=== PATIENT | male | born 1980 | race Caucasian/White ===

== ENCOUNTER 2022-05-25 10:13 | Outpatient (CLI) | payer BC, SELFPAY ==
[2022-05-25 10:45] LABS: Hematocrit 42.2 % (37.0-53.0); Hemoglobin* 14.6 gm/dL (13.5-17.5); Mean Corpuscular HGB Conc 35 gm/dL (32-36); Mean Corpuscular Hemoglobin 31 pg (26-34); Mean Corpuscular Volume 89 fL (80-100); Platelet Count* 220 K/uL (140-440); Red Blood Count 4.75 m/uL (4.30-5.90); White Blood Count* 6.78 K/uL (4.50-11.00)
[2022-05-25 10:51] LABS: Slide Review Reflex No
[2022-05-25 22:02] LABS: Albumin* 4.7 g/dL (3.3-5.0)
[2022-05-25 22:03] LABS: Chloride* 104 mmol/L (96-114); Potassium* 4.3 mmol/L (3.6-5.1); Sodium* 140 mmol/L (135-149)
[2022-05-25 22:05] LABS: Alkaline Phosphatase* 97 U/L (40-150); Aspartate Amino Transferase* 35 U/L (12-35); Bilirubin Total* 0.7 mg/dL (0.1-1.5); Blood Urea Nitrogen* 14 mg/dL (5-24); Carbon Dioxide* 28 mmol/L (20-32); Cholesterol* 205 mg/dL (90-199); Creatinine* 0.8 mg/dL (0.5-1.5); Estimated Glomerular Filt Rate 113 ml/min; Total Protein* 7.7 g/dL (6.0-8.3)
[2022-05-25 22:06] LABS: Alanine Aminotransferase* 70 U/L (4-50); Calcium* 9.5 mg/dL (8.4-10.6); Glucose* 82 mg/dL (60-115); HDL Cholesterol* 50 mg/dL (>=40); LDL Cholesterol Calculated 132 mg/dL (<100); Triglycerides* 113 mg/dL (40-149)
== END 2022-05-25 10:14 | disposition home or self-care (01) ==
PROVIDERS: PCP Physician Assistant Medical; Visit Provider Physician Assistant Medical
DX: Z01.810 Encounter for preprocedural cardiovascular examination (principal); Z13.6 Encounter for screening for cardiovascular disorders
CPT/HCPCS: 80053; 80061; 85027

== ENCOUNTER 2023-05-27 09:00 | Outpatient (CLI) | payer BC, SELFPAY | END 2023-05-27 09:01 | disposition home or self-care (01) | LOC: NFLDREF 06-03 09:39 | PROVIDERS: PCP Physician Assistant Medical; Referring Provider Physician Assistant Medical; Visit Provider Physician Assistant Medical | DX: E78.5 Hyperlipidemia, unspecified (principal); R79.89 Other specified abnormal findings of blood chemistry | CPT/HCPCS: 80053; 80061; 84443 ==

== ENCOUNTER 2024-04-23 06:14 | Day surgery (SDC) | payer BC, SELFPAY ==
[2024-04-23] VITALS (7 sets, daily range): BP systolic 112–156; BP diastolic 62–84; PULSE 50–79; RESP 14–16; TEMP 36.3–36.6; O2SAT 92–99; BMI 29.5
--- OUTSIDE RECORDS SUMMARY | 2024-04-23 06:16 | XMS_ITS | Clinical Summary ---
Author Organization [facility] Address [place], [place] [address] Care Team Providers Care Offset Label Rewinder Name Role Phone Pcp, No Primary Care Provider Unavailabl e Allergies No known active allergies Medications Medication Sig Dispensed Refills Start Date End Date Status HYDROcodone-acetam inophen (NORCO) 5-325 mg per tabletIndications: Sebaceous cyst Take 1 Tablet by mouth every 4 hours if needed for Pain. Max acetaminophen dose: 4000 mg in 24 hrs. 10 Tablet 06/08/2022 Active Active Problems Problem Noted Date Diagnosed Date Sebaceous cyst 06/08/2022 Social History Tobacco Use Types Packs/Day Years Used Date Smoking Tobacco: Never Smokeless Tobacco: Never Alcohol Use Standard Drinks/Week Comments Yes 0 (1 standard drink = 0.6 oz pur e alcohol) 1-2/week Sex and Gender Information Value Date Recorded Sex Assigned at Not on file Gender Identity Not on file Sexual Orientation Not on file Obstetrics History Last Filed Vital Signs Vital Sign Reading Time Taken Comments Blood Pressure 128/73 06/08/2022 9:32 AM STUDIO PRODUCER Pulse 61 06/08/2022 9:32 AM STUDIO [employer]ODUCER Temperature 36.5 ??C (97.7 ??F) 06/08/2022 9:32 AM CS T Respiratory Rate 16 06/08/2022 9:32 AM STUDIO PRODUCER Oxygen Saturation 99% 06/08/2022 9:32 AM STUDIO PRODUCER Inhaled Oxygen Concentration - - Weight 85.3 kg (188 lb) 06/08/2022 7:10 AM STUDIO PRODUCER Height 172.7 cm (5' 8) 06/08/2022 7:10 AM STUDIO PRODUCER Body Mass Index 28.59 06/08/2022 7:10 AM STUDIO PRODUCER Plan of Treatment Health Maintenance Due Date Last Done Comments Tdap 1989 Depression screening for age 12+ 1990 HIV for age 15-65 1993 BMI (ht and wt on same day) for age 18+ 1996 Hepatitis C screening for ag e 18-79 1996 Tetanus booster 1998 COVID-19 vaccine series ( season) 2023 06/14/2021, 11/11/2020 Influenza for age 9-49 03/11/2023 Colonoscopy through age 75 2023 Lipids for age 45-75 2023 Pneumococcal series for age 6-64 Aged Out No longer eligible b ased on patient's age to complete this topic Advance Directives * Full Code (Latest Code Status on File) Date Activated Date Inactivated Comments 06/08/2022 5:59 AM 06/08/2022 3:02 PM Question Answer Comments Code Status Discussion: Other not disc ussed Care Teams Offset Label Rewinder Relationship Specialty Start Date End Date Pcp, No . PCP - General 05/19/22
[2024-04-23] MEDS: SODIUM CHLORIDE 0.9 % (FLUSH) 10 ML SYRINGE IVF (06:30)
[2024-04-23] MEDS: LACTATED RINGERS 1000 ML 1,000 ML 100 ML IV (07:23)
--- NOTE | 2024-04-23 07:25 | W.PM.H&PU ---
History & Physical Update History & Physical Update H&P Reviewed and patient assessed: No changes noted
--- NOTE | 2024-04-23 07:31 | P.GSOP_ITS ---
Operative Note Date of procedure: 04/23/24 Pre-op diagnosis: 1. Symptomatic right scalp mass, right upper quadrant abdominal wall mass, right lower back mass, and left upper arm mass. Post-op diagnosis: Same Type of Procedure: 1. Excision of right back cyst 6 x 4.5 cm. 2. Excision of left upper arm cyst 3.3 x 2.1 cm. 3. Excision of right upper quadrant abdominal wall mass 6.6 x 4.1 cm. 4. Excision of right scalp mass 5 x 2.1 cm. Indications: 43-year-old male was seen in clinic for evaluation of multiple enlarging masses. Patient complained about left mid upper arm cyst that he noticed several weeks ago. The cyst became hard and painful. He was seen in Urgent Care and was placed on antibiotics. He completed the course of antibiotics. And was seen again in primary care clinic. He was placed on a second course of antibiotics due to concern for continued infection. During his surgery clinic visit his cyst was getting significantly smaller and was not red. Patient also complained of right frontal scalp, right upper quadrant abdominal wall cyst, and right lower back cyst. These were present for a long time. The right lower back cyst was the most bothersome when patient was driving in the car and leaning on his seat. On clinical exam in the right frontal scalp there was a subdermal mass that was measuring approximately dime-sized and protruding from the level of the skin for at least 1 cm. The skin overlying the cyst was thinned out with no ulceration. In the right upper quadrant abdominal wall just inferior to the lower rib there was a slightly larger than golf ball-sized subcutaneous mass that was mobile. The skin overlying the mass was slightly raised suggestive of a cyst. This was not tender to palpation. In the left upper mid arm there was a larger than quarter in size cyst that was soft to palpation. There was no drainage noted and there was a small skin opening in the center of the cyst. The cyst seemed to be attached to the dermis of the overlying skin. In the right lower back there was a horizontally oriented 5 x 6 cm subdermal mass with a central protruding skin over the mass. This was somewhat mobile but deep to palpation. Given patient's clinical history and his enlarging cysts, excision of of all 4 cysts in the operating room was recommended. The procedure was discussed in detail. The risks associated procedure including infection, bleeding, and cyst recurrence were all discussed with the patient, and he agreed to proceed. Procedure Description: After discussing the risks and benefits of the procedure, the patient signed informed consent.? The operative site was marked and the patient was brought to the operating room and placed on the operating table in the lateral decubitus position.? Care was taken to pad the patient's pressure points.?? The patient was then sedated by anesthesia.?? The operative site was then prepped and draped in the usual sterile fashion.? A time-out was then performed. I first started with excision of right lower back mass. Local anesthetic was injected over the palpable right lower back soft tissue mass. An elliptical skin incision was made with a scalpel excising the jones in appearance skin overlying the mass. This is most likely where the cyst was adherent to the dermis. Soft tissue and dermis were divided with cautery. The cyst and surrounding fat were then excised. During this dissection cyst wall was entered and straw-colored thin fluid with minimal debris spilled out into the incision. The cyst was then excised with cautery and sent to pathology. The cyst was measuring 6 x 4.5 cm. Hemostasis achieved with cautery. The incision was irrigated with normal saline. Additional local anesthetic was injected at the surgical site. The incision was then closed in layers with interrupted 2-0 and 3-0 Vicryl sutures. The skin was closed with a running 4-0 Monocryl stitch. The length of the incision was 6.5 cm. Sterile pressure dressing was placed over the incision. We then repositioned the patient into the supine position with all pressure points padded. We then prepped right upper quadrant abdominal wall and left upper lateral arm skin with sterile prep. Those 2 surgical sites were draped in the usual sterile fashion. Local anesthetic was injected at both surgical sites. I then proceeded with excision of left upper arm cyst. Slight thickening in the skin was palpable but the cyst itself decrease in size. An elliptical vertical skin incision was made with a scalpel excising the cyst opening. The dermis was divided with a scalpel. Subcutaneous fat was then dissected with cautery until the lips of skin and underlying cyst with inflammatory tissue were excised. This was sent to pathology. This excise cyst measured 3.3 x 2.1 cm. Additional local anesthetic was injected at the surgical site. The dermis was then reapproximated with interrupted 3-0 Vicryl sutures. The skin was closed with of running 4-0 Monocryl stitch. The length of the incision was 3.5 cm. Steri- Strips and sterile pressure dressings were placed over this incision. I then proceeded with excision of right upper quadrant abdominal wall mass. The mass was protuberant above the level of the skin with a central skin thinning out that was jones in appearance. A horizontal elliptical skin incision was made over the mass excising the discolored thinned out skin. The incision was made with a scalpel. Dermis and subcutaneous fat were divided with cautery. The mass was mobilized circumferentially with cautery until it was excised. The mass was measuring 6.6 x 4.1 cm. It was sent to pathology. Additional local anesthetic was injected the surgical site. The incision was then closed in layers with interrupted 2-0 in 3-0 Vicryl sutures. The skin was closed with a running 4-0 Monocryl stitch. The length of the incision was 7 cm. Steri-Strips and sterile pressure in dressing were placed over the incision. Finally, we proceeded with excision of right scalp cyst. Surgical site was prepped and draped in the usual sterile fashion. The cyst was subdermal but was protuberant above the level of the skin for at least 1 cm. The skin overlying the cyst was thinning out. Local anesthetic was injected at the surgical site. An elliptical horizontal skin incision was made around the cyst excising thinned out skin. The cyst was mobilized of the dermis and the galea with a scalpel and cautery. Hemostasis was achieved with cautery and 3-0 Vicryl stick ties. The cyst was excised and sent to pathology. It was measuring 5 x 2.1 cm. Skin flaps were developed medially and laterally with cautery. The incision was then reapproximated with interrupted 2-0 in 3-0 Vicryl sutures. The skin was closed with a running 4-0 Monocryl stitch. The length of the incision was 5 cm. Dermabond was applied over the incision. The patient was then woken and transported to the recovery area in stable condition. ? The patient tolerated the procedure well. Findings: All masses had appearances of benign cysts. Anesthesia: MAC and local Surgeon: Nena Woodard MD Estimated blood loss (mL): 20 Additional Specimen Information: 1. Right back mass. 2. Left upper arm mass. 3. Right upper quadrant abdominal wall mass. 4. Right scalp mass. Condition: stable Disposition: same day
[2024-04-23] MEDS: CEFAZOLIN 2 GM INJ IVP (07:35)
[2024-04-23] MEDS: BUPIVACAINE 0.25% 30 ML INJECTION (07:49)
[2024-04-23] MEDS: LIDOCAINE 1%-EPI 1:100,000 20 ML INFILTRATI (07:49)
--- NOTE | 2024-04-23 09:16 | W.ANESCHARGE ---
Anesthesia Charges Start Date/Time Anesthesia Start Date: 04/23/24 Anesthesia Start Time: 07:30 Stop Date/Time Anesthesia Stop Date: 04/23/24 Anesthesia Stop Time: 09:16
--- NOTE | 2024-04-23 09:20 | W.ANESCHARGE ---
Anesthesia Charges Start Date/Time Anesthesia Start Date: 04/23/24 Anesthesia Start Time: 07:30 Stop Date/Time Anesthesia Stop Date: 04/23/24 Anesthesia Stop Time: 09:16
== END 2024-04-23 10:29 | disposition home or self-care (01) ==
PROVIDERS: PCP Physician Assistant Medical; Visit Provider Surgery
PROC: (CPT 21931; principal; 2024-04-23 07:30)
DX: L72.12 Trichodermal cyst (principal); L72.0 Epidermal cyst; R22.0 Localized swelling, mass and lump, head; R22.2 Localized swelling, mass and lump, trunk; R22.32 Localized swelling, mass and lump, left upper limb
CPT/HCPCS: 21931; 24071; 22903; 11426; 17999; 00300; 00400; 88304; J0665; J0690; J1100; J1885; J2405; J2704; J3010; J3490; J7120